=== PATIENT | male | born 1955 | race Caucasian/White ===

== ENCOUNTER 2021-04-10 00:22 | Day surgery (SDC) | payer MEDICARE, SELFPAY ==
[2021-04-07 15:23] VITALS: BMI 31.8
[2021-04-10] VITALS (11 sets, daily range): BP systolic 109–142; BP diastolic 69–102; PULSE 73–89; RESP 10–16; TEMP 36.4–36.6; O2SAT 92–98; BMI 30.8
--- NOTE | 2021-04-10 06:05 | SUR.PREOP ---
0605- Updated patient and spouse, Elle procedure start time will be delayed. Patient and spouse verbalized understanding.
--- NOTE | 2021-04-10 07:08 | P.PNAN_ITS ---
Anes - Initial Pre Proc Eval Procedure: Operation Date: 04/10/21 07:30 Proposed Procedures p Left Partial Palmar Fasciectomy - Ismael Briggs MD Date/Time: 04/10/21 07:08 Surgeon: Ismael Briggs MD Pre Op Diagnosis: left ring finger dupuytrens contracture Patient Data Age: 65 Gender: M Height: 1.75 m Weight: 98 kg Allergies Allergy/AdvReac Type Severity Reaction Status Date / Time chlorpheniramine Allergy Mild Rash Verified 04/10/21 07:06 [From Tylenol Allergy Multi-Symptom] phenylephrine Allergy Mild Rash Verified 04/10/21 07:06 [From Tylenol Allergy Multi-Symptom] Home Medications Medication Instructions Recorded Confirmed Type phenobarbital 97.2 mg PO HS 04/07/21 04/07/21 History phenytoin sodium extended 100 mg PO BID 04/07/21 04/07/21 History Patient hx anesthesia problems: none Family hx anesthesia problems: none [facility] Past Medical History Medical History (Updated 04/10/21 @ 07:09 by Kevin Craft DO) L3 vertebral fracture Seizure Social History Social History Smoking status: Never smoker Alcohol intake: former Alcohol use details: SOCIALLY IN PAST Substance use: never Living arrangements: other Additional living arrangements comments: [facility] Spiritual care concerns: No Anes - Eval Final PreProcedure Day of Procedure 04/10/21 07:08 Patient weight: obese Heart: regular rate and rhythm Lungs: clear to auscultation and normal air movement Airway: Mallampati scale class II Neurological: alert and oriented Last oral intake: >/= 8 hours ASA classification: II Emergent: no Anesthetic plan: proceed Anesthesia type and monitoring: general LMA and standard monitoring Informed Consent: The patient's anesthetic plan and its attendant risks and benefits were discussed with the patient/family/POA. Questions were solicited and answers provided to the satisfaction of the patient/family/POA.
[2021-04-10] MEDS: LACTATED RINGERS 1,000 ML 30 ML IV CONT (08:54)
--- NOTE | 2021-04-10 09:26 | WPDHPUPDATE1 ---
History and Physical Update Update Date/Time: 04/10/21 09:26 History and Physical has been reviewed, including an updated exam of the patient. There are NO changes in the patient's condition. Risks, benefits, and alternatives have been discussed and questions answered. Patient agrees to proceed with procedure.
[2021-04-10] MEDS: LIDO 1%/EPINEPHRINE 1:100,000 20 ML VIAL 5 ML INFILTRATE (09:49)
--- NOTE | 2021-04-10 11:30 | PM.OP ---
Procedure Note - Brief Procedure Note - Brief Date of procedure: 04/10/21 Pre-op diagnosis: left ring finger dupuytrens contracture Post-op diagnosis: same Procedure performed: Partial palmar fasciectomy of right palm and ring finger. Surgeon: Ismael Briggs MD Product Support Analyst: Rocio Newman Estimated blood loss (mL): 5 Tourniquet time (min): 70 Drains: No Packing: No Pathology: none sent Complications: No immediate complications Condition: stable Disposition: PACU
--- NOTE | 2021-04-10 11:32 | P.OP_ITS ---
Procedure Note - Detailed Date of Procedure 04/10/21 Pre-op Diagnosis left ring finger dupuytrens contracture Post-op Diagnosis same Procedure Performed Partial palmar fasciectomy of the left palm and ring finger Surgeon Ismael Briggs MD [employer] Nancy talavera Anesthesia general Indications Dupuytren's contracture Findings same Description of Procedure the left palm was marked on the patient's hand in the holding area. He was taken to the operating room and placed supine on the operating table. A time- out was held and confirmed. He was given general endotracheal anesthesia. The extremity was prepped and draped in usual fashion. the site was locally infiltrated with 1% lidocaine with epinephrine markings were made for incisions. The tourniquet was inflated to 250 mmHg. The diagonal incision was made in the palm overlying the pretendinous cord there. careful dissection revealed that cord and it was removed proximally and distally to the incision. The palmar midline incision was made connecting that wound. The skin flaps were elevated. Very dense pretendinous cord was identified throughout the full length of the finger to the distal interphalangeal crease. There were marked intermetacarpal cords as well and the long spiral cord on the ulnar side. The neurovascular bundles were dissected. The cord tissue was removed. Full extension was achieved on the finger. The wound was closed with nylon suture using to Z- plasties. The tourniquet was released the soft Bandage was applied. he is discharged from the operating room stable condition. Prescription for hydrocodone was sent.
[2021-04-10] MEDS: fentaNYL CITRATE INJ (*CRX) 100 MCG/2 ML VIAL 25 MCG IV PUSH ×2 (11:49→12:07)
[2021-04-10] MEDS: ONDANSETRON INJ 4 MG/2 ML VIAL IV PUSH (12:20)
[2021-04-10] MEDS: diphenhydrAMINE HCl INJ 50 MG/ML VIAL 25 MG IV PUSH (12:54)
[2021-04-10] MEDS: SCOPOLAMINE 1.5 MG PATCH TRANSDERM (12:54)
[2021-04-10] MEDS: oxyCODONE HCL (*CRX) 5 MG TAB IR PO (13:16)
== END 2021-04-10 14:05 | disposition home or self-care (01) ==
PROVIDERS: PCP Family Medicine; Visit Provider Plastic Surgery
PROC: (CPT 26045; principal; 2021-04-10 07:30)
DX: M72.0 Palmar fascial fibromatosis [Dupuytren] (principal); G40.909 Epilepsy, unspecified, not intractable, without status epilepticus; E66.9 Obesity, unspecified; Z68.30 Body mass index [BMI] 30.0-30.9, adult
CPT/HCPCS: 26123; A9270; J1200; J2250; J2270; J2405; J2704; J3010; J7120